=== PATIENT | male | born 1980 | race American Indian/Alaskan Native ===

== ENCOUNTER 2017-03-12 06:02 | Emergency (ER) | payer SELFPAY ==
[2017-03-12 09:14] VITALS: BP 108/71
== END 2017-03-12 09:41 | disposition left against medical advice (07) ==
LOC: ED 06:02
DX: Z04.1 Encounter for examination and observation following transport accident (principal); Z53.21 Procedure and treatment not carried out due to patient leaving prior to being seen by health care provider; V98.8XXA Other specified transport accidents, initial encounter; Y93.89 Activity, other specified; Y99.8 Other external cause status; Y92.410 Unspecified street and highway as the place of occurrence of the external cause